=== PATIENT | male | born 1945 | race Caucasian/White ===

== ENCOUNTER 2025-01-31 10:21 | Emergency (ER) | payer MEDICARE, SELFPAY ==
[2025-01-31 10:23] VITALS: BP 145/67
[2025-01-31 11:41] VITALS: BMI 22.8
[2025-01-31] MEDS: TORADOL 15 MG IV (11:51)
[2025-01-31 11:52] VITALS: BP 131/56
[2025-01-31 12:00] LABS: Urine Character Clear (Clear)
[2025-01-31 12:03] LABS: Hematocrit 36.5 % (39.0-52.0); Hemoglobin 12.9 g/dL (13.0-18.0); Mean Corp Hgb Conc. 35.3 g/dL (33.0-37.0); Mean Corpuscular Volume 90.1 fL (80.0-94.0); Nucleated Red Blood Cells % 0 % (-); Platelet Count 146 10^3/uL (130-400); Red Cell Dist. Width 12.7 % (11.5-14.5)
[2025-01-31 12:10] LABS: Urine Squamous Cell 0-2 /LPF (Few); Urine White Cell 0-2 /HPF (0-5)
[2025-01-31 12:17] LABS: ALT (SGPT) 16 U/L (0-50); AST (SGOT) 25 U/L (17-59); Albumin 4.9 g/dl (3.5-5.0); Alkaline Phosphatase 46 U/L (38-126); Blood Urea Nitrogen 26 mg/dl (9-20); Calcium 9.4 mg/dl (8.4-10.2); Carbon Dioxide 28 mmol/L (22-30); Chloride 105 mmol/L (98-107); Estimated Creatinine Clearance 58 ml/min; Glucose 110 mg/dl (70-99); Potassium 4.4 mmol/L (3.5-5.1); Sodium 140 mmol/L (135-145); Total Protein 7.9 g/dl (6.3-8.2); eGFR > 60.00
[2025-01-31] MEDS: NSS 500 IV (13:02)
--- NOTE | 2025-01-31 13:05 | ED.GENMED ---
History of Present Illness
General
Chief Complaint: Flank Pain
Source: patient
Exam Limitations: none
Time Seen by Provider: 01/31/25 11:32
Nursing documentation reviewed up to this point in time: agreed with
History of Present Illness
History of Present Illness:
see MDM
Past History
Past History
ED Past Medical History: None
ED Past Surgical History: None
Social History
Tobacco: Non-smoker
Alcohol: None
Drug: None
Personal:
Living: with family
Review of Systems
Review of Systems
Allergies reviewed?: Yes
All Other Systems: Not applicable
Phy Exam
Physical Exam
Physical Exam:
GENERAL: Alert , in no apparent distress
EYE: pupils equal and reactive
NECK: Supple
ENT: o/p clr, mmm.
CARDIAC: Regular rate and rhythm .
LUNGS: Clear breath sounds bilaterally, no acute respiratory distress, no wheezes/rales/rhonchi
ABDOMEN: Soft, without focal tenderness, no r/g, no cvat, normal bowel sounds
back' nontender
NEUROLOGICAL: Alert and oriented, no focal neuro deficits
SKIN: Warm and dry, skin intact.
MUSCULOSKELETAL: No edema, well perfused. neg jane's sign
PSYCH: Normal and appropriate interaction.
Course
Orders/Labs/Results
Orders:
Orders
01/31/25 11:40
Ketorolac [Toradol] 15 mg IV NOW STA
01/31/25 11:41
CT Abd/pel Without Iv Or Oral Urgent
Comment:
Reason For Exam: L flank pain overnight
01/31/25 11:46
Complete Blood Count/With Diff Urgent
Comprehensive Metabolic Panel Urgent
Urinalysis Reflex To Culture Urgent
Date Specimen was Collected: 01/31/25
Time Specimen was Collected: 11:42
Urine Microscopic Reflex Cult Urgent
01/31/25 12:37
0.9% Sodium Chloride 500 ml [Nss] 500 ml IV BOLUS
01/31/25 13:16
Tamsulosin [Flomax] 0.4 mg PO NOW STA
Abnormal Lab Results
01/31/25
11:46
RBC 4.05 L 10^6/uL
(4.70-6.10)
Hgb 12.9 L g/dL
(13.0-18.0)
Hct 36.5 L %
(39.0-52.0)
MCH 31.9 H pg
(27.0-31.0)
Absolute Lymphs (auto) 0.7 L 10^3/uL
(1.2-3.4)
Neutrophils % 80.8 H %
(42.2-75.2)
Lymphocytes % 11.3 L %
(20.5-51.1)
BUN 26 H mg/dl
(9-20)
Glucose 110 H mg/dl
(70-99)
Ur Occult Blood Reflex 2+ A
(Negative)
Urine RBC 7-10 A /HPF
(0-2)
Urine Bacteria (Reflex) Few A
(Negative)
Urine Albumin (Reflex) 1+ A
(Neg - Trace)
01/31/25 11:46
01/31/25 11:46
Vital Signs
Initial and Last Documented VS:
Initial Vital Signs
Temp Pulse Resp BP Pulse Ox
37.0 C 72 16 145/67 97
01/31/25 10:23 01/31/25 10:23 01/31/25 10:23 01/31/25 10:23 01/31/25 10:23
Last Documented Vital Signs
Temp Pulse Resp BP Pulse Ox
37.1 C 55 16 146/62 98
01/31/25 11:52 01/31/25 13:30 01/31/25 10:23 01/31/25 13:30 01/31/25 13:30
MDM/Problems Addressed
Differential Diagnosis Includes:
see MDM
MDM/Problems Addressed:
Note:
CHIEF COMPLAINT(S)
Abdominal pain with radiation and associated nausea.
HISTORY OF PRESENT ILLNESS
The patient, a male, reports waking up at 3:00 AM with severe pain in the lower left back that radiated to L groin . The pain was accompanied by feelings of nausea. The patient mentioned experiencing a similar episode at approximately 9:00 AM,
prompting him to seek medical attention. He confirmed taking aspirin last night at 3:00 AM, as he was concerned about the possibility of a cardiac event. However, the pain was not associated with any upper chest discomfort. He denies any blood in
stools, diarrhea, fever, chills, recent falls, or back injury. The patient underwent a colonoscopy 10 days ago and has been doing well since. On a pain scale of 0 to 10, he currently rates his pain as 0. but he last had a bad pain episode around 9
am
CHRONIC MEDICAL CONDITIONS SIGNIFICANTLY AFFECTING CARE
The patient is on chronic medications for hypertension and hyperlipidemia.
MEDICATIONS
- Omeprazole
- Amlodipine
- Atorvastatin
- Irbesartan
- Tamsulosin for prostate
PHYSICAL EXAM
- Abdomen: Flank tenderness noted.
- Back: Examined to rule out rash, no shingles or skin abnormalities observed.
- Nursing notes reviewed and vital signs reviewed.
PLAN
1. Send urine for analysis to evaluate for hematuria and other findings.
2. Perform a computed tomography scan of the abdomen and pelvis to assess for kidney stones.
3. Conduct blood tests to evaluate kidney function.
4. Administer intravenous Ketorolac (Toradol) for pain management of suspected renal colic.
DIFFERENTIAL DIAGNOSIS
The Differential Diagnosis includes, in no particular order and is not limited to:
1. Nephrolithiasis (Kidney Stone)
2. Acute Appendicitis
3. Diverticulitis
4. Hernia
5. Biliary Colic
6. Pancreatitis
7. Peptic Ulcer Disease
8. Intestinal Obstruction
9. Aortic Aneurysm
10. Pyelonephritis
1300 -
pain free still
reviewed labs, showing microscopic hematuria, normal cr 1.1, no signs of infection
wbc normal
ct showing small 2 mm L distal ureteral stone mild hydroureter
other incidentals d/w pt
will add flomax once a day
pain controlled currently
motrin/tylenol
f/u with dr. huynh
pt aware of enlared prostate gland
*Pulse Oximetry
SaO2: 98
Oxygen Mode of Delivery: Room air
Patient hypoxic: no (98)
*Critical Care Note
Total Time (30-74mins, 75-104mins- exclusive of procedures): Not Applicable
ED Attending Note
-
Portions of this chart may have been created with voice recognition software.� Occasional wrong word or��sound alike� substitutions may have occurred due to the inherent limitations of voice recognition software.
Discharge Plan
Departure
Patient Disposition: Home (Routine Discharge)
Date of Disposition: 01/31/25
Time of Disposition: 13:13
Patient with high blood pressure during this ER visit?: No
Condition: Fair
Covid-19: Not Applicable
Discharge Problem:
Kidney stone
Instructions: Flank Pain (DC), How to Strain Your Urine
Prescriptions:
New
tamsulosin [Flomax] 0.4 mg capsule
0.4 mg PO DAILY Qty: 10 0RF
Referrals:
Alice Alvarez MD [Family Provider, Family Practice] - Follow up in 2-3 days
Jaron Huynh MD [Active, Urology] - Follow up in 1 week
Activity Restrictions/Additional Instructions:
You have a 2 mm kidney stone that is almost in your bladder on the left side. Each time you urinate please urinate through the strainer. make sure to drink plenty of fluids. You may take Flomax once a day until you passed the stone. Take Tylenol
3 times a day, ibuprofen 400 mg 3 times a day as needed for pain. Call Dr. Huynh for an appointment.
Return for any concerns
Interventions
Interventions:
*Risk Screen - Suicide Last Done: 01/31/25 11:40
*General Assessment Last Done: 01/31/25 11:40
*Neglect/Abuse Screening Last Done: 01/31/25 11:40
*ED- Fall Risk Assessment Last Done: 01/31/25 11:40
*ED COVID-19 Vaccine History Last Done: 01/31/25 11:40
*Nursing Disposition Last Done: 01/31/25 13:41
BQ-Epbqrl-Mdhhnsbsho Assessment Last Done: 01/31/25 12:04
ED-Male Genitourinary Assessment Last Done: 01/31/25 12:04
Discharge Date and Time
Discharge Date/Time: 01/31/25 13:41
Print Language: CITIZEN [place]
[2025-01-31 13:30] VITALS: BP 146/62
[2025-01-31] MEDS: FLOMAX 0.4 MG PO (13:33)
== END 2025-01-31 13:41 | disposition home or self-care (01) ==
LOC: EMR 10:21
PROVIDERS: Physician Assistant; EMERGENCY PHYSICIAN Emergency Medicine; FAMILY PHYSICIAN Family Medicine
DX: N20.0 Calculus of kidney (principal); E78.5 Hyperlipidemia, unspecified; I10 Essential (primary) hypertension; Z79.899 Other long term (current) drug therapy
CPT/HCPCS: 96374; 96361; 99284; 74176; 80053; 81003; 81015; 85025